=== PATIENT | male | born 2000 | race Caucasian/White ===

== ENCOUNTER 2021-03-23 12:16 | Emergency (ER) | payer OTHER ==
[~2021-03-23] VITALS: Ht 182.9 cm; Wt 72.9 kg
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
[2021-03-23] MEDS ORDERED: ISOVUE-370 76% 100ML VIAL As Ordered ONE (13:42)
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
[2021-03-23 15:00] VITALS: BP 128/64
== END 2021-03-23 15:24 | disposition home or self-care (01) ==
LOC: M ED 12:16
DX: S20.219A Contusion of unspecified front wall of thorax, initial encounter (principal); R42 Dizziness and giddiness; V49.40XA Driver injured in collision with unspecified motor vehicles in traffic accident, initial encounter
CPT/HCPCS: 71101; 71120; 71260; 99284; Q9967

== ENCOUNTER 2022-11-28 17:30 | Emergency (ER) | payer OTHER ==
[~2022-11-28] VITALS: Ht 182.9 cm; Wt 70.5 kg
[2022-11-28] MEDS ORDERED: NYST1POW9 TOP (19:34)
[2022-11-28 19:45] VITALS: BP 122/71
== END 2022-11-28 19:47 | disposition home or self-care (01) ==
LOC: M ED 17:30
DX: B37.2 Candidiasis of skin and nail (principal); Z79.02 Long term (current) use of antithrombotics/antiplatelets